=== PATIENT | male | born 2000 | race Hispanic/Latino ===

== ENCOUNTER 2024-05-24 21:54 | Emergency (ER) | payer OTHER ==
[~2024-05-24] VITALS: Ht 167.6 cm; Wt 84.0 kg
[2024-05-24 22:03] VITALS: TEMP 97.9
[2024-05-25] MEDS: LIDOCAINE 1% MDV 20ML VIAL SC ONE (01:20)
[2024-05-25 02:13] VITALS: BP 125/85; O2SAT 98
== END 2024-05-25 02:14 | disposition home or self-care (01) ==
LOC: EDBD 21:54 → M ED 21:54
DX: S61.215A Laceration without foreign body of left ring finger without damage to nail, initial encounter (principal); Y92.019 Unspecified place in single-family (private) house as the place of occurrence of the external cause; Y93.9 Activity, unspecified; Y99.9 Unspecified external cause status; F17.210 Nicotine dependence, cigarettes, uncomplicated; F10.10 Alcohol abuse, uncomplicated